=== PATIENT | female | born 2000 | race Caucasian/White ===

== ENCOUNTER 2021-02-22 19:18 | Emergency (ER) | payer SELFPAY ==
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
[2021-02-22 19:56] VITALS: BP 101/67; PULSE 92; RESP 17; TEMP 36.6; O2SAT 100
[2021-02-22 23:05] VITALS: BP 124/77; PULSE 69; RESP 16; O2SAT 100
[2021-02-23 00:05] VITALS: BP 117/63; PULSE 88; RESP 20; O2SAT 98
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
[2021-02-23 00:13] VITALS: RESP 18
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
[2021-02-23 01:21] VITALS: BP 111/66; PULSE 76; RESP 13; O2SAT 100
== END 2021-02-23 01:23 | disposition home or self-care (01) ==
PROVIDERS: Emergency Provider Emergency Medicine; PCP Family Medicine
DX: R07.89 Other chest pain (principal); V48.5XXA Car driver injured in noncollision transport accident in traffic accident, initial encounter
CPT/HCPCS: 71046; 99283